=== PATIENT | female | born 1940 | race African-American/Black ===

== ENCOUNTER 2016-09-07 09:02 | Outpatient (CLI) | payer OTHER ==
--- NOTE | 2016-09-07 14:25 | PET Report ---
PET/CT:09/07/16 09:02:00 CLINICAL: Left upper lobe lung lesion. RADIOPHARMACEUTICAL: 14.62mCi F18-FDG. COMPARISON: None. PET/CT TECHNIQUE- Following intravenous injection of F-18 FDG and an approximately 60 minute uptake period, CT and PET images from the mid skull to the upper thighs were acquired with the patient in the fasted state. No contrast was administered. The CT protocol used for this PET CT study is designed for attenuation correction and anatomic localization of PET abnormalities. This production welding supervisor CT is not desired to produce and cannot replace, [id number] diagnostic CT scans with specific imaging protocols for different body parts and indications. Plasma glucose at the time of this test: 106g/dl. The standardized uptake values (SUV) are normalized to patient body weight and indicate the highest activity concentration (SUV max) in a given disease site. FINDINGS: Brain--Physiologic FDG uptake in the visualized regions of the brain. Neck--Physiologic FDG uptake . Chest--Physiologic FDG uptake in mediastinal blood pool and myocardium. Lungs--No abnormal uptake. An oval 1 cm noncalcified smooth non-FDG avid left upper lobe lung nodule and a 4 mm non-FDG avid second left upper lobe lung nodule. The larger nodule has a tiny central cavitation. A wedge-shaped medial left lower lobe lung mass contiguous to the posterior heart consists of both linear and round air-filled components. It measures approximately 3.4 x 2.0 x 5.4 cm and is probably an intralobar pulmonary sequestration. Pleura/pericardium--No abnormal uptake. Thoracic nodes--No abnormal uptake. Hepatobiliary--No abnormal uptake. Liver background SUV mean, as a reference for comparing FDG studies, is 3.8 . No liver mass. Spleen--No abnormal uptake. Pancreas--No abnormal uptake. Adrenal Glands--No abnormal uptake. Kidneys/Ureters/Bladder--No abnormal uptake. Abdominopelvic Nodes--No abnormal uptake. Bowel/Peritoneum/Mesentery--No abnormal uptake. Pelvic organs--No abnormal uptake. Bones/Soft Tissues--No abnormal uptake. No bone lesion. IMPRESSION-1. A 1 cm non-FDG avid cavitating left upper lobe lung nodule and a 4 mm noncalcified non-FDG avid left upper lobe lung nodule. Neoplasm remains a possibility despite the lack of FDG uptake. 2. 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
== END 2016-09-07 09:03 | disposition home or self-care (01) ==
LOC: PET 09:02
PROVIDERS: ATTEND Specialist
DX: R91.1 Solitary pulmonary nodule (principal)
CPT/HCPCS: 78815; 82962; A9552

== ENCOUNTER 2016-10-10 06:11 | Day surgery (SDC) | payer OTHER ==
[2016-10-10] MEDS ORDERED: WATER FOR IRRIG STERILE IR ONE (07:16)
[2016-10-10] MEDS ORDERED: XYLOCAINE 1% 20 mL ONE (07:17)
[2016-10-10] MEDS ORDERED: LIDOCAINE VISCOUS 2% ONE (07:17)
[2016-10-10] MEDS ORDERED: NEO SYNEPHRINE ONE (07:18)
[2016-10-10] MEDS ORDERED: VERSED ONE (07:50)
[2016-10-10] MEDS ORDERED: DIPRIVAN 10 MG/ML IV ONE ×2 (07:50)
[2016-10-10] MEDS ORDERED: LIDOCAINE VISCOUS 2% MM ONE ×7 (07:55→08:12)
[2016-10-10] MEDS ORDERED: NACL 0.9% 1000 ML 1,000 ML IV SCH (08:00)
--- NOTE | 2016-10-10 08:02 | Anesthesia Consultation ---
Anesthesia Consult and Med Hx Date of service: 10/10/16 - Airway Anesthetic Teeth Evaluation: Edentulous ROM Head & Neck: Adequate Mental/Hyoid Distance: Adequate Mallampati Class: Class II Intubation Access Assessment: Probably Good - Pulmonary Exam CTA: Yes - Cardiac Exam Cardiac Exam: RRR - Pre-Operative Health Status ASA Pre-Surgery Classification: ASA3 Proposed Anesthetic Plan: General - Pulmonary Hx Smoking: Yes (Remote) - Cardiovascular System Hx Hypertension: Yes - Additional Comments Anesthesia Medical History Comments: Lung lesion. Denies other medical concerns and any previous anesthesia complications.
--- NOTE | 2016-10-10 08:03 | Anesthesia Day of Surgery ---
Anesthesia Day of Surgery - Day of Surgery Patient Examined: Yes Patient H&P Reviewed: Yes Patient is NPO: Yes
[2016-10-10] MEDS ORDERED: XYLOCAINE 1% 20 mL INFILTRATI ONE (08:41)
--- NOTE | 2016-10-10 09:20 | Post Anesthesia Evaluation ---
- Post Anesthesia Evaluation Patient Participated: Yes Airway Patent: Yes Stable Respiratory Function: Yes Nausea/Vomiting: No Temp > 96.8F: Yes Pain Manageable: Yes Adequeate Hydration: Yes Anesthesia Complications: No Block Receding Appropriately: Not Applicable Patient on Ventilator: No
[2016-10-10 09:26] VITALS: BP 137/74
--- NOTE | 2016-10-10 09:33 | Procedure Note ---
Date of procedure: 10/10/16 Pre-op diagnosis: darnell cavitary lesion Post-op diagnosis: same Procedure: bronchoscopy Anesthesia: MAC Surgeon: ANUPAMA CHASE Estimated blood loss: none Pathology: list Specimen disposition: to lab (cytology, cs afb fungal)
--- NOTE | 2016-10-27 07:17 | Operative Report ---
PROCEDURE: Bronchoscopy. INDICATION: Abnormal upper lobe lesion. DESCRIPTION OF PROCEDURE: With informed consent obtained from the patient, procedure was performed. See anesthesia and nursing note in reference to the procedure. Via the right nares, endoscope was introduced. No upper airway lesions were noted. Good abduction and adduction of vocal cords was noted. No endobronchial lesions were noted. A lot of mucoid material was aspirated from the left upper lobe. Specimen sent for C and S, fungal, AFB and cytology. The patient tolerated the procedure well. Spoke to the patient and in reference to bronchoscopy results. Follow up as scheduled. JOB# [id number] HARMONY/STEVEN
== END 2016-10-10 06:12 | disposition home or self-care (01) ==
LOC: GIO 06:11
PROVIDERS: ATTEND Specialist
DX: R91.1 Solitary pulmonary nodule (principal); I10 Essential (primary) hypertension; E78.00 Pure hypercholesterolemia, unspecified; Z87.891 Personal history of nicotine dependence
CPT/HCPCS: 31623; 31624; 87102; 87116; 87186; 87220; 88104; 88112; J2250; J2704; J7030; J2370